=== PATIENT | male | born 1980 | race Caucasian/White ===

== ENCOUNTER 2017-07-15 02:14 | Emergency (ER) | payer MEDICAID, SELFPAY ==
[2017-07-15 02:15] VITALS: BP 126/74; PULSE 100; RESP 16; TEMP 36.7; O2SAT 92; BMI 20.9
[2017-07-15] MEDS: Diphth,Pertuss(Acell),Tet Vac 0.5 ML Vial IM (02:25)
--- NOTE | 2017-07-15 02:27 | ED.DCSUM_ITS ---
- ER Visit Summary Date of Service: 07/15/17 Chief Complaint: Right finger 1-1/2 hours prior to presentation History of Present Illness: The patient is a 36 M who is right-hand dominant. He presents with injury to his right long finger. The finger was smashed in a car door. He presents because of laceration volar surface and subungual hematoma. He complains of throbbing pain. Immunization is unknown. He is a smoker. He is decreased to 1 pack per day. He does report sweats. He denies weight loss. Physical Examination: Vital signs are unremarkable. Pulse ox is 92% on room air which is abnormal for a 36-year-old. Examination of the right hand reveals clubbing. He has a subungual hematoma, 100% right long finger. The extensor commonest tendon, the flexor digitorum superficialis and flexor digitorum profundus are intact. There is pain to palpation and swelling of the distal phalanx. Capillary refill is normal. Sensation is normal. Test Results: Three-view x-ray of the right long finger reveals soft tissue swelling without evidence of fracture Emergency Department Course and Treatment: X-ray of the right long finger was obtained to evaluate for fracture. Treatment Plan: The subungual hematoma was trephinated using a hot cautery. Disposition: Was told he has clubbing and that he needs to follow-up with his doctor for further testing to determine the cause. He was informed that is in his best interest to quit smoking. Impression: 1. Crush injury right long finger 2. 100% subungual hematoma right long finger 3. Trephination of subungual hematoma 4. Clubbing This note was generated with [employer] dictation software. It may contain incorrect words, spelling, and punctuation that were not noted in review of the chart prior to signing ED Disposition - Plan for ED Patient: Disposition: Home or Assisted Living Chief Complaint: Upper Extremity Injury Instructions: ED Crush Injury Finger No Fx, ED Hematoma Subungual, ED Laceration Small Superf No Sutr Referrals: NOT,DEFINED [Primary Care Provider] - Neela Luque MD [STAFF PHYSICIAN] - Additional Instructions: Since you do not have a physician who referred to Dr. Neela Luque.
--- NOTE | 2017-07-15 02:30 | RAD_ITS ---
STUDY: X-RAY - RIGHT HAND, ATTENTION MIDDLE FINGER REASON FOR EXAM: Male, 36 years old. Finger caught in car door. TECHNIQUE: 3 view(s) of the finger were obtained. COMPARISON: None. FINDINGS: Normal metacarpal head. Normal metacarpophalangeal joint. Normal proximal phalanx. Normal middle phalanx. Normal distal phalanx. Normal proximal interphalangeal joint. Normal distal interphalangeal joint. RAD/Finger(s) Min 2 Views IMPRESSION: Normal x-ray examination of the finger. Electronically Signed: Bao Martinez MD at 3:40 EDT , Service support ,
[2017-07-15 03:05] VITALS: BP 126/74; PULSE 100; RESP 16; O2SAT 92
== END 2017-07-15 03:06 | disposition home or self-care (01) ==
LOC: ED 02:53
PROVIDERS: Emergency Provider Emergency Medicine
DX: S61.312A Laceration without foreign body of right middle finger with damage to nail, initial encounter (principal); W23.0XXA Caught, crushed, jammed, or pinched between moving objects, initial encounter; Y93.9 Activity, unspecified; Y92.9 Unspecified place or not applicable; Y99.9 Unspecified external cause status; Z23 Encounter for immunization; R68.3 Clubbing of fingers; F17.200 Nicotine dependence, unspecified, uncomplicated
CPT/HCPCS: 11740; 73140; 90471; 90715; 99282

== ENCOUNTER 2017-09-17 00:07 | Emergency (ER) | payer MEDICAID, SELFPAY ==
[2017-09-17 00:10] VITALS: BP 124/100; PULSE 94; RESP 16; TEMP 36.5; O2SAT 98; BMI 49.1
--- NOTE | 2017-09-17 01:13 | RAD_ITS ---
STUDY: X-RAY - THORACIC SPINE REASON FOR EXAM: Male, 36 years old. Patient fell down hill 4 days ago. Mid lower back pain. TECHNIQUE: AP and lateral view(s) of the thoracic spine were obtained. COMPARISON: None. FINDINGS: Normal kyphosis of the thoracic spine. There is no substantial scoliosis. Normal thoracic vertebrae and endplates. Normal disc space heights. The soft tissue structures are unremarkable. RAD/Thoracic Spine 2 Views IMPRESSION: No demonstrated acute fracture. Electronically Signed: Kedar Bustillos MD at 2:26 EDT Tel , Service support ,
--- NOTE | 2017-09-17 01:13 | RAD_ITS ---
STUDY: X-RAY CHEST REASON FOR EXAM: Male, 36 years old. Patient fell 4 days ago. Severe mid lower thoracic pain. TECHNIQUE: PA and lateral views of the chest. COMPARISON: None. FINDINGS: The lungs are somewhat hyperinflated. No focal infiltrate is seen. There is no evidence of pneumothorax. There is no demonstrated pleural abnormality. Normal size heart. Normal mediastinum and krista. Normal visualized pulmonary arteries. Normal visualized aortic arch and descending thoracic aorta. Normal visualized thoracic spine. Normal visualized ribs, clavicles, and shoulders. There is no demonstrated abnormality of the visualized soft tissue structures of the upper abdomen. RAD/Chest PA and Lateral IMPRESSION: No active pulmonary disease. Electronically Signed: Kedar Bustillos MD at 2:02 EDT Tel , Service support ,
[2017-09-17] MEDS: oxyCODONE 5 MG Tablet 10 MG PO (01:28)
--- NOTE | 2017-09-17 02:59 | ED.VISSUMM ---
- ER Visit Summary Date of Service: 09/17/17 Chief Complaint: Back pain History of Present Illness: The patient is a 36 M who presents with back pain. It initially began 4 days ago. He fell down a hill. He states his pain was worse today when he got up. He had very similar symptoms one year ago. He complains of bilateral leg tingling but not numb. He denies any fevers abdominal pain history of back surgery. Physical Examination: Vital vitals are unremarkable Patient does appear uncomfortable Moist mucous membranes Heart regular rate and rhythm Lungs are clear Patient has paraspinal thoracic tenderness right more than left Negative straight leg raise bilaterally Alert Normal strength and sensation no focal or lateralizing neurological deficits Test Results: Chest x-ray and thoracic x-rays are normal. Emergency Department Course and Treatment: She given oxycodone here with relief of symptoms. He was given a prescription for Percocet and Flexeril. He understands to return for new or worsening symptoms and was instructed on specific signs and symptoms to monitor for. He was otherwise advised to follow-up as an outpatient. Treatment Plan: [] Disposition: Discharge Impression: Thoracic strain This note was generated with [employer] dictation software. It may contain incorrect words, spelling, and punctuation that were not noted in review of the chart prior to signing ED Disposition - Plan for ED Patient: Chief Complaint: Back Referrals: Care Physician,No Primary [Primary Care Provider] -
--- NOTE | 2017-09-17 03:00 | ED.DEP ---
ED Disposition - Plan for ED Patient: Chief Complaint: Back Instructions: ED Sprain Thoracic Spine Prescriptions: Oxycodone HCl/Acetaminophen [Percocet 5/325] 1 tab PO Q6H PRN PRN 2 Days #8 tab PRN Reason: Pain Cyclobenzaprine [Flexeril] 10 mg PO TID PRN #20 tab PRN Reason: Muscle Spasm Referrals: Care Physician,No Primary [Primary Care Provider] -
[2017-09-17 03:10] VITALS: BP 117/64; PULSE 78; RESP 16; O2SAT 98
[2017-09-17 03:11] VITALS: BP 113/60; PULSE 79; RESP 16; O2SAT 99
== END 2017-09-17 03:12 | disposition home or self-care (01) ==
PROVIDERS: Emergency Provider Emergency Medicine
DX: M54.9 Dorsalgia, unspecified (principal); S29.012A Strain of muscle and tendon of back wall of thorax, initial encounter; W17.89XA Other fall from one level to another, initial encounter; Y93.9 Activity, unspecified; Y92.9 Unspecified place or not applicable; Y99.9 Unspecified external cause status; F41.9 Anxiety disorder, unspecified; Z72.0 Tobacco use; Z79.899 Other long term (current) drug therapy
CPT/HCPCS: 71046; 72070; 99284

== ENCOUNTER 2018-03-11 21:37 | Emergency (ER) | payer MEDICAID, SELFPAY ==
[2018-03-11 21:39] VITALS: BP 106/53; PULSE 86; PULSE 91; RESP 17; TEMP 37.1; O2SAT 100; BMI 23.7
--- NOTE | 2018-03-11 21:46 | ED.RN ---
NO OLD EKGS IN MUSE
--- NOTE | 2018-03-11 21:47 | EKG12_ITS ---
Test Reason : CP Blood Pressure : / mmHG Vent. Rate : 089 BPM Atrial Rate : 089 BPM P-R Int : 126 ms QRS Dur : 096 ms QT Int : 344 ms P-R-T Axes : 070 086 075 degrees QTc Int : 418 ms Normal sinus rhythm Normal ECG Confirmed by JANNY LOPEZ, MARCIE ([id number]), video news editor DEBBIE JACQUES ([id number]) on 03/14/2018 1:21:52 PM Referred By: PIERO Confirmed By:MARCIE SOLIMAN MD
[2018-03-11 22:10] LABS: Absolute Lymphocyte Count 2.49 X10^3/ul (0.83-4.51); Absolute Neutrophil Count 6.1 X10^3/uL (2.0-7.7); Basophil# 0.01 X10^3/uL; Basophil% 0.1 % (0-1); Eosinophil# 0.08 X10^3/uL; Eosinophils% 0.9 % (0-5); Hematocrit 42.2 % (40-54); Hemoglobin 14.4 g/dl (13.0-16.5); Lymphocyte # 2.49 X10^3/ul (4.0); Lymphocyte % 26.9 % (19-41); Mean Corp Hgb Conc 34.1 g/gl (32-36); Mean Corpuscular Volume 93.8 fL (80-94); Mean Platelet Vol. 10.4 fl (6.2-12.0); Monocyte# 0.56 X10^3/uL; Neutrophil # 6.11 X10^3/uL (2.7-7.7); Neutrophil % 65.9 % (47-70); Platelet Count 253 K/mm3 (150-450); RBC Distribution Width SD 44.3 fl (35.1-43.9); White Blood Count 9.3 K/mm3 (4.4-11.0)
[2018-03-11 22:16] LABS: POSITIVE COUNT NO; POSITIVE DIFFERENTIAL NO; POSITIVE MORPHOLOGY NO
[2018-03-11 22:31] LABS: Anion Gap 7 (5-15); BUN 21 mg/dL (7-18); BUN/Creat Ratio 17.1 RATIO (10-20); Calcium,Total 9.2 mg/dL (8.5-10.1); Chloride 104 mmol/L (98-107); Creatinine, Serum 1.23 mg/dL (0.70-1.30); EST Glomerular Filtration Rate 71 mL/min (>60); Est Glom Filt Rate - Afr Amer 86 mL/min (>60); Estimated Creatinine Clearance 89.28 ml/min; Glucose 80 mg/dL (74-106); Potassium 3.4 mmol/L (3.5-5.1); Sodium Level 140 mmol/L (136-145)
--- NOTE | 2018-03-11 22:55 | RAD_ITS ---
STUDY: X-RAY CHEST REASON FOR EXAM: Male, 37 years old. Chest pain TECHNIQUE: Single AP portable view of the chest. COMPARISON: 09/17/2017. FINDINGS: There is hyperinflation of the lungs consistent with chronic obstructive lung disease (COPD). No infiltrates or effusions. There is no demonstrated pleural abnormality. Normal size heart. Normal mediastinum and krista. Normal visualized pulmonary arteries. Normal visualized aortic arch and descending thoracic aorta. Normal visualized thoracic spine. Normal visualized ribs, clavicles, and shoulders. There is no demonstrated abnormality of the visualized soft tissue structures of the upper abdomen. RAD/Chest 1 View (Portable) IMPRESSION: No change. No acute chest disease. Hyperexpansion of the lungs. Electronically Signed: Kuldip Beasley MD at 23:06 EST , Service support ,
[2018-03-11 23:21] VITALS: BP 134/106; PULSE 78; RESP 17; O2SAT 100; O2SAT 99
[2018-03-11] MEDS: Ketorolac 30 MG/ML Syringe IV (23:30)
--- NOTE | 2018-03-11 23:52 | ED.DCSUM_ITS ---
- ER Visit Summary Date of Service: 03/11/18 Chief Complaint: Chest pain History of Present Illness: The patient is a 37 M who presents with an anterior chest pain. He describes it as sharp and stabbing is worse with movement and to touch. He was at work today at our [employer]. He states that he began to have an anxiety-like attack. 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 He states that he is had a lot of stress over the past 2- 1/2 years with the of his brother, significant other, and losing everything due to skilled nursing. States he quit smoking in April and got in shape. He states that 2 days ago he did smoke marijuana but did not have any coughing fits. He did not have any symptomatology until today. He states that he was doing a slightly different job but it was not manually taxing. Physical Examination: Afebrile vital signs are stable Gen: Well-nourished well-developed Head: Normocephalic atraumatic Eyes: Perrl EOMI ENT: TMs clear no rhinorrhea moist mucous membranes Neck: Supple no lymphadenopathy no JVD nontender CVS: Regular rate rhythm no murmurs normal S1-S2 Respiratory: No distress clear to auscultation bilaterally anterior chest wall is tender to palpation along the costochondral border bilaterally. This repr oduces his pain. Abdomen: Soft nontender nondistended normal bowel sounds no masses Back: Nontender Extremity: Nontender no edema Skin: Normal color no rash Neuro: alert orientated ?3 CN II-XII intact normal strength sensation reflexes gait cerebellar Psych: Normal affect normal mood Test Results: Labs obtained through nursing protocol were negative except for potassium 3.4 BUN 21. EKG sinus at a rate of 89. Chest x-ray showed no obvious pneumothorax. Emergency Department Course and Treatment: She received Toradol. He will be discharged home with supportive care. Return if worsening or concerns. He is to use anti-inflammatories. Impression: 1. Chest wall pain 2. Costochondritis This note was generated with [employer] dictation software. It may contain incorrect words, spelling, and punctuation that were not noted in review of the chart prior to signing ED Disposition - Plan for ED Patient: Disposition: Home or Assisted Living Chief Complaint: Chest Pain Instructions: ED Chest Pain Costochondritis Prescriptions: Ibuprofen [Motrin] 800 mg PO TID PRN PRN #20 tab PRN Reason: Pain Referrals: Erica Garza MD [STAFF PHYSICIAN] - 1 Week if not improving
[2018-03-12 00:12] VITALS: BP 122/94; PULSE 74; RESP 17; O2SAT 98
--- NOTE | 2018-03-12 00:13 | ED.RN ---
PT GIVEN WRITTEN AND VERBAL DISCHARGE INSTRUCTIONS AND HOME GOING PRESCRIPTIONS. PT VERBALIZES UNDERSTANDING AND DENIES ANY FURTHER QUESTIONS. PT IV D/C AND COVERED WITH 2X2 DRESSING AND PAPER TAPE. PT DRESSES SELF AND AMBULATES OUT OF DEPT WITH FRIEND.
== END 2018-03-12 00:15 | disposition home or self-care (01) ==
PROVIDERS: Emergency Provider Emergency Medicine
DX: M94.0 Chondrocostal junction syndrome [Tietze] (principal); F41.9 Anxiety disorder, unspecified; Z79.899 Other long term (current) drug therapy; Z87.891 Personal history of nicotine dependence
CPT/HCPCS: 71045; 80048; 84484; 85025; 93005; 96374; 99284; J7030; A4216